=== PATIENT | male | born 1995 | race Caucasian/White ===

== ENCOUNTER 2016-02-25 11:23 | Day surgery (SDC) | payer OTHER ==
[2016-02-25] VITALS (7 sets, daily range): BP systolic 118–139; BP diastolic 53–79; PULSE 68–136; RESP 11–18; Ht 172.7 cm; Wt 68.9 kg
[~2016-02-25] VITALS: Ht 172.7 cm; Wt 68.9 kg
[~2016-02-25 11:23] MED LIST: EPHEDrine SULFATE 50 MG/5 ML SYG ONE
[2016-02-25] MEDS ORDERED: POLYMYXIN/BACITRACIN 1L IRRIG ONE (13:13)
[2016-02-25] MEDS ORDERED: LIDOCAINE 2% (SDV) 5 ML INJ ONE (13:33)
[2016-02-25] MEDS ORDERED: PROPOFOL 20 ML ONE (13:34)
[2016-02-25] MEDS ORDERED: MIDAZOLAM 1 MG/ML 2 ML INJ ONE (13:34)
[2016-02-25] MEDS ORDERED: ROPIVACAINE 0.5 % 30 ML VIAL ONE (15:30)
[2016-02-25] MEDS ORDERED: PHENYLephrine (100 MCG/ML) 5ML SYG ONE ×2 (15:42→17:18)
[2016-02-25] MEDS ORDERED: METOCLOPRAMIDE 10 MG INJ ONE (15:55)
[2016-02-25] MEDS ORDERED: ONDANSETRON 4 MG INJ ONE (15:55)
[2016-02-25] MEDS ORDERED: DEXAMETHASONE 4 MG/ML 1 ML INJ ONE (15:55)
[2016-02-25] MEDS ORDERED: CEFAZOLIN 1 GM INJ ONE (16:00)
[2016-02-25] MEDS ORDERED: FENTAnyl 50 MCG/ML VIAL ONE (16:00)
[2016-02-25] MEDS ORDERED: BUPIVACAINE 0.5%/EPI (SDV) 30 ML INJ ONE (16:11)
[2016-02-25] MEDS ORDERED: HYDROmorphONE 2 MG/ML SYG ONE (17:51)
[2016-02-25] MEDS ORDERED: HYDROmorphONE (0.2 MG/ML) 10ML SYG IV PRN ×3 (18:00)
[2016-02-25] MEDS ORDERED: ONDANSETRON 4 MG INJ IV PRN ×2 (18:00→18:30)
[2016-02-25] MEDS ORDERED: PROCHLORPERAZINE 10 MG INJ IV PRN (18:00)
[2016-02-25] MEDS ORDERED: OXYCODONE/ACETAMINOPHEN (5/325) TAB PO PRN (18:00)
[2016-02-25] MEDS ORDERED: FENTAnyl 50 MCG/ML VIAL IV PRN ×3 (18:00)
[2016-02-25] MEDS ORDERED: DIPHENHYDRAMINE 50 MG INJ IV PRN (18:00)
[2016-02-25] MEDS ORDERED: MEPERIDINE 25 MG INJ IV PRN (18:00)
[2016-02-25] MEDS ORDERED: morphine 2 MG INJ IV PRN (18:30)
--- NOTE | 2016-02-25 18:44 | OPR ---
DATE OF OPERATION: 02/25/2016 PREOPERATIVE DIAGNOSIS: Right both bone forearm fracture. POSTOPERATIVE DIAGNOSIS: Right both bone forearm fracture. OPERATION PERFORMED: 1. Open reduction internal pleasing fixation right both bone forearm fracture. 2. Use of intraoperative fluoroscopy, interpretation x-ray. SURGEON: Alex Burleson. ELECTROPLATER: None. ANESTHESIA: Interscalene block with general endotracheal anesthesia. ANESTHESIOLOGIST: Dr. Monroe INDICATION: Mr. Roe Blackmon is a 20-year-old male who sustained the above fracture from the fall off a skateboard. The fractures are displaced and angulated. My recommendation was open reduction internal fixation for which he now presents. The risks and benefits were discussed with the patient , risks including but not limited to infection, bleeding, blood clots, nerve damage, blood vessel da mage, malunion, nonunion, along with other medical, anesthetic, and surgical complications were disc ussed. Informed consent was obtained. DESCRIPTION OF PROCEDURE: The patient's correct forearm was identified in the preoperative area. Connie bedoya was brought back to the operating room where he had general endotracheal anesthesia. Prior to thi s, an interscalene block was placed. He had preoperative antibiotics. The right upper extremity wa s prepped and draped in standard sterile manner. A time-out was performed. I then first turned my attention to the radial shaft fracture. I used a volar Ben approach to the radius. I went throug h skin and subcutaneous tissue and developed the interval between the pronator teres and the brachio radialis, found the radial artery distally, mobilized it medially, and dissected subperiosteally the muscle tissue off the radial shaft to expose the fracture. The fracture was kept in anatomically r educed position. A LCDC plate was placed on the volar surface. One distal and one proximal screw w as placed. Reduction was found to be satisfactory. At this point, I turned my attention to the uln a. The level was incised along the subcutaneous border. I went through skin and subcutaneous tissu e, subperiosteally elevated the tissue. The fracture was comminuted. The fracture was carefully an d anatomically reduced into position. I put a LCDC plate on the volar surface, put 1 proximal and 1 distal screw. X-rays showed near anatomic fixation of both fractures. At this point, I put severa l locking screws proximally and distally through both plates. X-rays showed anatomic ____ in 2 plan es of the fractures. At this point, I let down the tourniquet, obtained adequate hemostasis. The f ascia over the ulnar plate was closed with 0 Vicryl. The subcutaneous tissue in both incisions was closed with 0 and 2-0 Vicryl, skin with bobbi. Forearm was soft with a 2+ radial pulse at the end of the case. All fingers and digits were well perfused at the end of the case. Dictated By: ALEX BURLESON MD, RA/CAITLYN Conf#: [id number] DID#: [id number]
--- NOTE | 2016-02-25 19:47 | RADRPT ---
PROCEDURE: XR Forearm. CLINICAL INDICATION: Status post ORIF. TECHNIQUE: AP and lateral views of the right forearm were obtained. COMPARISON: No prior studies are available for comparison. FINDINGS: The patient is status post ORIF of a mid ulnar and radial fracture by means of a side plate multiple screws. The ulnar fracture is in good position and alignment. There is mild offset of the mid sha ft radial fracture but overall good position and alignment. Surgical bobbi are seen in place. IMPRESSION: 1. Status post ORIF of a mid ulnar and radial fractures in good position and alignment. RPTAT: XX .Onur Diaz MD, Date Time Electronically viewed and signed by .Onur Diaz MD, on 02/25/2016 19:47 .T/
--- NOTE | 2016-02-25 23:14 | RADRPT ---
PROCEDURE: Intraoperative imaging of the right forearm with fluoroscopy. CLINICAL INDICATION: Right forearm pain. Fracture. Intraoperative. TECHNIQUE: Four images of the right forearm were obtained in the operating room with an image inte nsifier. No radiologist was in attendance. COMPARISON: No prior study is available for comparison. FINDINGS: Images demonstrate open reduction and internal fixation of the transverse fractures of the shafts of the radius and ulna with plates and screws. IMPRESSION: 1. Intraoperative imaging of the right forearm. RPTAT: QQ .Juancarlos Chatterjee MD, MD Date Time Electronically viewed and signed by .Juancarlos Chatterjee MD, on 02/25/2016 23:14 .R/
== END 2016-02-25 19:58 | disposition home or self-care (01) ==
LOC: SDS 11:23
PROVIDERS: ATTEND Specialist
DX: S52.391D Other fracture of shaft of radius, right arm, subsequent encounter for closed fracture with routine healing (principal); V00.131D Fall from skateboard, subsequent encounter
CPT/HCPCS: 25575; 73090; C1713; J0690; J1100; J1170; J2250; J2370; J2405; J2765; J2795; J3010; Z7512; Z7610